=== PATIENT | male | born 1995 | race Caucasian/White ===

== ENCOUNTER 2020-06-23 06:01 | Emergency (ER) | payer OTHER, SELFPAY ==
[2020-06-23] VITALS (9 sets, daily range): BP systolic 122–161; BP diastolic 59–93; PULSE 84–125; RESP 16–26; TEMP 37.4; O2SAT 93–99; BMI 27.3
--- NOTE | 2020-06-23 06:05 | ED.GIBLEED ---
HPI - GI Bleed <Asher Powell DO - Last Filed: 06/24/20 00:04> General Chief complaint: GI Bleed Stated complaint: Vomitting blood, confusion x 1 hour Time Seen by Provider: 06/23/20 06:05 Source: patient Mode of arrival: Ambulatory Limitations: no limitations History of Present Illness HPI Narrative: 24M nonsmoker without significant medical history presents with the chief complaint of multiple episodes of painless vomiting this morning which were rather violent and evolved into blood streaks and small dark clots. He is dizzy and lightheaded. He has been drinking 6-8 beers daily for a few years. He denies any history of GI bleed such as this, nor has he had the passage of dark and tarry stools. He does not take any blood thinners. He denies frequent use of aspirin or motrin. He's never had an EGD. He states he went to bed in his normal state of health. MD complaint: blood streaked emesis Onset (ago): hour(s) Severity: moderate Relieving factors: none Exacerbating factors: none Context: alcohol abuse Associated symptoms: nausea and vomiting Treatments Prior to Arrival: none Related Data Previous Rx's Medication Instructions Recorded omeprazole 40 mg PO DAILY #14 cap 06/23/20 ondansetron 4 mg PO Q8H PRN #10 tab 06/23/20 ondansetron 4 mg PO TID-QID PRN #10 tab 06/23/20 pantoprazole [Protonix] 40 mg PO DAILY #30 tab 06/23/20 sucralfate [Carafate] 1 g PO BID #30 tab 06/23/20 Allergies Allergy/AdvReac Type Severity Reaction Status Date / Time No Known Drug Allergies Allergy Verified 06/23/20 06:14 Review of Systems <Asher Powell DO - Last Filed: 06/24/20 00:04> Constitutional Constitutional: Denies chills, Denies fatigue, Denies fever(s), Denies frequent falls, Reports lethargy, Reports poor appetite and Reports weakness Eyes Eyes: Denies change in vision, Denies eye discharge, Denies irritation and Denies loss of vision ENT Ears, Nose, Mouth, and Throat: Denies change in voice, Denies dizziness, Denies neck pain, Denies sore throat and Denies throat swelling Cardiovascular Cardiovascular: Denies chest pain, Denies irregular heart rhythm, Denies lightheadedness, Denies palpitations, Denies dyspnea, Denies dyspnea on exertion and Denies orthopnea Respiratory Respiratory: Denies cough, Denies dyspnea, Denies dyspnea on exertion and Denies wheezing Gastrointestinal Gastrointestinal: Denies abdominal pain, Denies change in bowel habits, Denies diarrhea, Reports nausea, Reports vomiting and Reports hematemesis Musculoskeletal Musculoskeletal: Denies neck pain and Denies numbness Integumentary/Breasts Skin/Breast: Denies pruritus, Denies erythema, Denies rash and Denies wounds Neurologic Neurologic: Denies behavioral changes, Denies confusion, Denies dizziness, Denies frequent falls, Denies loss of vision, Denies numbness and Reports weakness Psychiatric Psychiatric: Denies anxiety, Denies behavioral changes, Denies confusion, Denies depression, Denies homicidal ideation and Denies suicidal ideation Endocrine Endocrine: Denies fatigue, Denies flushing and Denies palpitations Hematologic/Lymphatic Hematologic/Lymphatic: Denies easy bruising Allergic/Immunologic Allergic/Immunologic: Denies urticaria, Denies throat swelling and Denies wheezing Patient History <Asher Powell DO - Last Filed: 06/24/20 00:04> Social History Smoking Status: Never smoker Smoking Status: Never smoker alcohol intake frequency: 3 or more drinks per day Alcohol type: beer Substance Use Type: does not use Exam <Asher Powell DO - Last Filed: 06/24/20 00:04> Narrative Exam Narrative: GENERAL: [24] year old patient appears stated age. Well-nourished, well-developed patient, in mild distress. HEAD: Atraumatic. Normocephalic. EYES: Pupils equal round and reactive. Extraocular motions intact. No scleral icterus. No injection or drainage. ENT: Nose without bleeding, purulent drainage. Throat without erythema, tonsillar hypertrophy or exudate. Airway patent. NECK: Trachea midline. Non tender CARDIOVASCULAR: Tachycardic but regular rhythm without murmurs, gallops, or rubs. RESPIRATORY: Clear to auscultation. Breath sounds equal bilaterally. No wheezes, rales, or rhonchi. GASTROINTESTINAL: Abdomen soft, non-tender, nondistended. EXTREMITIES: No edema or joint tenderness. BACK: Nontender without deformity or crepitance. No flank tenderness. NEURO: AOx3. SKIN: No rash or erythema of visible areas Initial Vital Signs Initial Vital Signs: Vital Signs Temperature 99.3 F 06/23/20 06:05 Pulse Rate 125 H 06/23/20 06:05 Respiratory Rate 18 06/23/20 06:05 Blood Pressure 161/93 H 06/23/20 06:05 Pulse Oximetry 94 06/23/20 06:05 <Sara Quick, DO - Last Filed: 06/23/20 10:16> Initial Vital Signs Initial Vital Signs: Vital Signs Temperature 99.3 F 06/23/20 06:05 Pulse Rate 125 H 06/23/20 06:05 Respiratory Rate 18 06/23/20 06:05 Blood Pressure 161/93 H 06/23/20 06:05 Pulse Oximetry 94 06/23/20 06:05 Course <Asher Powell, DO - Last Filed: 06/24/20 00:04> Orders Ordered: Discontinued Medications Sodium Chloride (Normal Saline 0.9%) 1,000 mls @ 150 mls/hr IV CONT ENAMNUEL Last Infusion: 06/23/20 07:35 Dose: 150 mls/hr Documented by: Infusion: 06/23/20 06:56 Dose: 999 mls/hr Documented by: Admin: 06/23/20 06:32 Dose: 150 mls/hr Documented by: HARLEY Ondansetron HCl (Ondansetron 4 Mg/2 Ml Inj) 4 mg IV NOW ONE Stop: 06/23/20 06:14 Last Admin: 06/23/20 06:35 Dose: 4 mg Documented by: HARLEY Pantoprazole Sodium (Pantoprazole 40 Mg Vial) 40 mg IV NOW ONE Stop: 06/23/20 06:14 Last Admin: 06/23/20 06:32 Dose: 40 mg Documented by: HARLEY Reevaluation(s) Reevaluation #1: patient still feeling dizzy and lightheaded, HR down to low 100s now. Will hold on IVF until receipt of first H/H Time: 06:32 Vital Signs Vital signs: Vital Signs - 8 hr 06/23/20 06:05 06/23/20 06:31 06/23/20 07:00 Temperature 99.3 F Pulse Rate 125 H 96 H 94 H Respiratory Rate 18 19 21 Blood Pressure 161/93 H 138/69 124/68 Pulse Oximetry 94 94 95 06/23/20 07:30 06/23/20 08:00 06/23/20 08:30 Temperature Pulse Rate 93 H 84 94 H Respiratory Rate 16 Blood Pressure 122/65 124/59 L Pulse Oximetry 94 93 97 06/23/20 08:32 06/23/20 09:00 06/23/20 09:11 Temperature Pulse Rate 92 H 91 H 88 Respiratory Rate 26 H Blood Pressure 130/68 128/74 Pulse Oximetry 95 96 99 <Sara Quick, DO - Last Filed: 06/23/20 10:16> Orders Ordered: Discontinued Medications Sodium Chloride (Normal Saline 0.9%) 1,000 mls @ 150 mls/hr IV CONT ENMANUEL Last Infusion: 06/23/20 07:35 Dose: 150 mls/hr Documented by: Infusion: 06/23/20 06:56 Dose: 999 mls/hr Documented by: Admin: 06/23/20 06:32 Dose: 150 mls/hr Documented by: HARLEY Ondansetron HCl (Ondansetron 4 Mg/2 Ml Inj) 4 mg IV NOW ONE Stop: 06/23/20 06:14 Last Admin: 06/23/20 06:35 Dose: 4 mg Documented by: HARLEY Pantoprazole Sodium (Pantoprazole 40 Mg Vial) 40 mg IV NOW ONE Stop: 06/23/20 06:14 Last Admin: 06/23/20 06:32 Dose: 40 mg Documented by: HARLEY Vital Signs Vital signs: Vital Signs - 8 hr 06/23/20 06:05 06/23/20 06:31 06/23/20 07:00 Temperature 99.3 F Pulse Rate 125 H 96 H 94 H Respiratory Rate 18 19 21 Blood Pressure 161/93 H 138/69 124/68 Pulse Oximetry 94 94 95 06/23/20 07:30 06/23/20 08:00 06/23/20 08:30 Temperature Pulse Rate 93 H 84 94 H Respiratory Rate 16 Blood Pressure 122/65 124/59 L Pulse Oximetry 94 93 97 06/23/20 08:32 06/23/20 09:00 11/30/20 09:11 Temperature Pulse Rate 92 H 91 H 88 Respiratory Rate 26 H Blood Pressure 130/68 128/74 Pulse Oximetry 95 96 99 MDM - GI Bleed <Asher Powell DO - Last Filed: 06/24/20 00:04> Lab Data Result diagrams: 06/23/20 08:32 06/23/20 06:30 Labs: Lab Results 06/23/20 06/23/20 06/23/20 Range/Units 06:30 06:30 06:30 WBC 7.7 (4.5-11.0) X10^3/uL RBC 4.87 (4.5-5.9) X10^6/uL Hgb 15.0 (13.5-17.5) g/dL Hct 44.8 (41-53) % MCV 91.8 (80-100) fL MCH 30.8 (26-34) PG MCHC 33.5 (30-36) % RDW 14.0 (11.6-14.8) % Plt Count 273 (150-400) X10^3/uL Neut % (Auto) 76.7 H (50-75) % Lymph % (Auto) 15.2 L (25-40) % [place] % (Auto) 7.2 (3-14) % Eos % (Auto) 0.4 L (2-4) % Baso % (Auto) 0.5 (0-2) % Neut # (Auto) 5900 (2277-6346) /uL Lymph # (Auto) 1200 (0726-7424) /uL [place] # (Auto) 600 (0-900) /uL Eos # (Auto) 0 (0-450) /uL Baso # (Auto) 0 (0-100) /uL PT 11.6 (10.1-12.7) SECONDS INR 1.0 (0.9-1.3) APTT 27 (26.4-36.2) SECONDS Sodium 135 L (137-145) mmol/L Potassium 3.9 (3.4-5.1) mmol/L Chloride 97 L (98-107) mmol/L Carbon Dioxide 21 L (22-32) mmol/L BUN 12 (9-20) mg/dL Creatinine 0.69 (0.66-1.25) mg/dL Estimated GFR > 60.0 (>60) mL/min BUN/Creatinine Ratio 17.4 (6-22) Glucose 83 (70-100) mg/dL Calcium 9.4 (8.4-10.2) mg/dL Total Bilirubin 0.7 (0.2-1.3) mg/dL AST 37 (17-59) IU/L ALT 45 (<50) IU/L Alkaline Phosphatase 87 (38-126) U/L Total Protein 8.8 H (6.3-8.2) g/dL Albumin 5.0 (3.5-5.0) g/dL Globulin 3.8 (1.7-4.1) g/dL Albumin/Globulin Ratio 1.3 (1.0-2.8) COVID-19 PCR (Negative) Blood Type Antibody Screen 06/23/20 06/23/20 06/23/20 Range/Units 06:30 06:30 08:32 WBC (4.5-11.0) X10^3/uL RBC (4.5-5.9) X10^6/uL Hgb 14.1 (13.5-17.5) g/dL Hct 42.1 (41-53) % MCV (80-100) fL MCH (26-34) PG MCHC (30-36) % RDW (11.6-14.8) % Plt Count (150-400) X10^3/uL Neut % (Auto) (50-75) % Lymph % (Auto) (25-40) % [place] % (Auto) (3-14) % Eos % (Auto) (2-4) % Baso % (Auto) (0-2) % Neut # (Auto) (4981-5414) /uL Lymph # (Auto) (3067-4408) /uL [place] # (Auto) (0-900) /uL Eos # (Auto) (0-450) /uL Baso # (Auto) (0-100) /uL PT (10.1-12.7) SECONDS INR (0.9-1.3) APTT (26.4-36.2) SECONDS Sodium (137-145) mmol/L Potassium (3.4-5.1) mmol/L Chloride (98-107) mmol/L Carbon Dioxide (22-32) mmol/L BUN (9-20) mg/dL Creatinine (0.66-1.25) mg/dL Estimated GFR (>60) mL/min BUN/Creatinine Ratio (6-22) Glucose (70-100) mg/dL Calcium (8.4-10.2) mg/dL Total Bilirubin (0.2-1.3) mg/dL AST (17-59) IU/L ALT (<50) IU/L Alkaline Phosphatase (38-126) U/L Total Protein (6.3-8.2) g/dL Albumin (3.5-5.0) g/dL Globulin (1.7-4.1) g/dL Albumin/Globulin Ratio (1.0-2.8) COVID-19 PCR Negative (Negative) Blood Type A Positive Antibody Screen Negative <Sara Quick DO - Last Filed: 06/23/20 10:16> Lab Data Labs: Lab Results 06/23/20 06/23/20 06/23/20 Range/Units 06:30 06:30 06:30 WBC 7.7 (4.5-11.0) X10^3/uL RBC 4.87 (4.5-5.9) X10^6/uL Hgb 15.0 (13.5-17.5) g/dL Hct 44.8 (41-53) % MCV 91.8 (80-100) fL MCH 30.8 (26-34) PG MCHC 33.5 (30-36) % RDW 14.0 (11.6-14.8) % Plt Count 273 (150-400) X10^3/uL Neut % (Auto) 76.7 H (50-75) % Lymph % (Auto) 15.2 L (25-40) % [place] % (Auto) 7.2 (3-14) % Eos % (Auto) 0.4 L (2-4) % Baso % (Auto) 0.5 (0-2) % Neut # (Auto) 5900 (0514-1381) /uL Lymph # (Auto) 1200 (2624-5146) /uL [place] # (Auto) 600 (0-900) /uL Eos # (Auto) 0 (0-450) /uL Baso # (Auto) 0 (0-100) /uL PT 11.6 (10.1-12.7) SECONDS INR 1.0 (0.9-1.3) APTT 27 (26.4-36.2) SECONDS Sodium 135 L (137-145) mmol/L Potassium 3.9 (3.4-5.1) mmol/L Chloride 97 L (98-107) mmol/L Carbon Dioxide 21 L (22-32) mmol/L BUN 12 (9-20) mg/dL Creatinine 0.69 (0.66-1.25) mg/dL Estimated GFR > 60.0 (>60) mL/min BUN/Creatinine Ratio 17.4 (6-22) Glucose 83 (70-100) mg/dL Calcium 9.4 (8.4-10.2) mg/dL Total Bilirubin 0.7 (0.2-1.3) mg/dL AST 37 (17-59) IU/L ALT 45 (<50) IU/L Alkaline Phosphatase 87 (38-126) U/L Total Protein 8.8 H (6.3-8.2) g/dL Albumin 5.0 (3.5-5.0) g/dL Globulin 3.8 (1.7-4.1) g/dL Albumin/Globulin Ratio 1.3 (1.0-2.8) COVID-19 PCR (Negative) Blood Type Antibody Screen 06/23/20 06/23/20 06/23/20 Range/Units 06:30 06:30 08:32 WBC (4.5-11.0) X10^3/uL RBC (4.5-5.9) X10^6/uL Hgb 14.1 (13.5-17.5) g/dL Hct 42.1 (41-53) % MCV (80-100) fL MCH (26-34) PG MCHC (30-36) % RDW (11.6-14.8) % Plt Count (150-400) X10^3/uL Neut % (Auto) (50-75) % Lymph % (Auto) (25-40) % [place] % (Auto) (3-14) % Eos % (Auto) (2-4) % Baso % (Auto) (0-2) % Neut # (Auto) (6865-2135) /uL Lymph # (Auto) (8161-7470) /uL [place] # (Auto) (0-900) /uL Eos # (Auto) (0-450) /uL Baso # (Auto) (0-100) /uL PT (10.1-12.7) SECONDS INR (0.9-1.3) APTT (26.4-36.2) SECONDS Sodium (137-145) mmol/L Potassium (3.4-5.1) mmol/L Chloride (98-107) mmol/L Carbon Dioxide (22-32) mmol/L BUN (9-20) mg/dL Creatinine (0.66-1.25) mg/dL Estimated GFR (>60) mL/min BUN/Creatinine Ratio (6-22) Glucose (70-100) mg/dL Calcium (8.4-10.2) mg/dL Total Bilirubin (0.2-1.3) mg/dL AST (17-59) IU/L ALT (<50) IU/L Alkaline Phosphatase (38-126) U/L Total Protein (6.3-8.2) g/dL Albumin (3.5-5.0) g/dL Globulin (1.7-4.1) g/dL Albumin/Globulin Ratio (1.0-2.8) COVID-19 PCR Negative (Negative) Blood Type A Positive Antibody Screen Negative MDM Narrative Medical decision making narrative: Patient signed out to me by Dr. Powell and seen evaluated patient myself. No longer tachycardic after IV fluids no further vomiting in the ED for 3 hours. Repeat H&H is minimally decreased. At this time I recommend going home. More likely a Georgette-Pradhan tear. Does not seem to be a varicose bleed Discharge Plan Departure Patient Disposition: Home Clinical Impression: Georgette-Pradhan syndrome, Upper gastrointestinal hemorrhage Vomiting Qualifiers: Vomiting type: unspecified Vomiting Intractability: non-intractable Nausea presence: with nausea Qualified Code(s): R11.2 - Nausea with vomiting, unspecified Instructions: DI for Vomiting -- Adult, Gastrointestinal Bleeding Activity Restrictions/Additional Instructions: *You have been diagnosed with Georgette-Pradhan tear *What to do: Avoid vomiting forcefully if possible. Increase fluid intake throughout the day *Continue to take medications as directed Zofran 4 mg every 8 hours if needed for nausea or vomiting Protonix 40 mg once daily 30 minutes before your 1st meal *Follow up with your primary care provider in 2-3 days *Return to ER if you should have of vomiting blood persistently, dizziness lightheadedness passing out or any new, worsening or concerning symptoms Prescriptions: New ondansetron 4 mg tablet,disintegrating 4 mg PO TID-QID PRN (Reason: nausea and vomiting) Qty: 10 RF: 0 pantoprazole [Protonix] 40 mg tablet,delayed release (DR/EC) 40 mg PO DAILY Qty: 30 RF: 0 sucralfate [Carafate] 1 gram tablet 1 g PO BID Qty: 30 RF: 0 ondansetron 4 mg tablet,disintegrating 4 mg PO Q8H PRN (Reason: nausea and vomiting) Qty: 10 RF: 0 omeprazole 40 mg capsule,delayed release(DR/EC) 40 mg PO DAILY Qty: 14 RF: 0 Referrals: Megan Montague MD [Physician] -
[2020-06-23] MEDS: PANTOPRAZOLE 40 MG VIAL IV (06:32)
[2020-06-23] MEDS: SODIUM CHLORIDE 0.9% 1,000 ML 150 ML IV (06:32)
[2020-06-23] MEDS: ONDANSETRON 4 MG/2 ML INJ IV (06:35)
[2020-06-23 06:38] LABS: Add Manual Diff / Slide Review NO; Basophils Absolute Auto 0 /uL (0-100); Basophils Percent Auto 0.5 % (0-2); Eosinophils Absolute Auto 0 /uL (0-450); Eosinophils Percent Auto 0.4 % (2-4); Hematocrit 44.8 % (41-53); Lymphocytes Absolute Auto 1200 /uL (1100-4500); Lymphocytes Percent Auto 15.2 % (25-40); Mean Corpuscular HGB Conc 33.5 % (30-36); Mean Corpuscular Hemoglobin 30.8 PG (26-34); Mean Corpuscular Volume 91.8 fL (80-100); Monocytes Absolute Auto 600 /uL (0-900); Monocytes Percent Auto 7.2 % (3-14); Neutrophils Absolute Auto 5900 /uL (1500-7000); Neutrophils Percent Auto 76.7 % (50-75); Platelet Count 273 X10^3/uL (150-400); Red Blood Cell Count 4.87 X10^6/uL (4.5-5.9); White Blood Cell Count 7.7 X10^3/uL (4.5-11.0)
[2020-06-23 06:44] LABS: Prothrombin Time 11.6 SECONDS (10.1-12.7)
[2020-06-23 06:47] LABS: PTT Partial Thromboplastin Tim 27 SECONDS (26.4-36.2)
[2020-06-23 06:48] LABS: Alanine Aminotransferase 45 IU/L (<50); Albumin Globulin Ratio 1.3 (1.0-2.8); Alkaline Phosphatase 87 U/L (38-126); Aspartate Aminotransferase 37 IU/L (17-59); BUN Creatinine Ratio 17.4 (6-22); Bilirubin Total 0.7 mg/dL (0.2-1.3); Blood Urea Nitrogen 12 mg/dL (9-20); Calcium 9.4 mg/dL (8.4-10.2); Carbon Dioxide 21 mmol/L (22-32); Chloride 97 mmol/L (98-107); Estimated Glomerular Filt Rate > 60.0 mL/min (>60); Globulin 3.8 g/dL (1.7-4.1); Glucose 83 mg/dL (70-100); HEMOLYSIS < 15 (0-50); Potassium 3.9 mmol/L (3.4-5.1); Sodium 135 mmol/L (137-145); Total Protein 8.8 g/dL (6.3-8.2)
[2020-06-23 06:51] LABS: COVID19 -Nasal RAPID Negative (Negative)
[2020-06-23 08:38] LABS: Hematocrit 42.1 % (41-53); Hemoglobin 14.1 g/dL (13.5-17.5)
== END 2020-06-23 09:19 | disposition home or self-care (01) ==
PROVIDERS: Emergency Medicine; Emergency Provider Emergency Medicine
DX: K22.6 Gastro-esophageal laceration-hemorrhage syndrome (principal); R11.2 Nausea with vomiting, unspecified
CPT/HCPCS: 36415; 80053; 85014; 85018; 85025; 85610; 85730; 86850; 86900; 86901; 87635; 93005; 93010; 96361; 96374; 96375; 99283; 99284; C9113; J2405

== ENCOUNTER → 2021-06-09 08:25 | Outpatient (CLI) | payer SELFPAY ==
--- NOTE | 2021-06-09 08:29 | DI.RAD.S_ITS ---
PROCEDURE: XR THORACIC SPINE 2V INDICATIONS: CERVICEL SPINE PAIN TECHNIQUE: 2 views of the thoracic spine were acquired. COMPARISON: None. FINDINGS: Bones: No acute fracture. Levocurvature noted no definite disc space narrowing. Soft tissues: No paravertebral stripe thickening. IMPRESSION: Thoracic levocurvature. Dictated by: Kwadwo Hutchison M.D. on 06/09/2021 at 9:58 Approved by: Kwadwo Hutchison M.D. on 06/09/2021 at 9:59
--- NOTE | 2021-06-09 08:29 | DI.RAD.S_ITS ---
PROCEDURE: XR CERVICAL SPINE 2V OR 3V INDICATIONS: CERVICAL SPINE PAIN TECHNIQUE: 2 view(s) of the cervical spine were acquired. COMPARISON: None. FINDINGS: Bones: Straightening of the normal lordotic curvature. No acute fracture. Multilevel degenerative endplate sclerosis and spurring. Diffuse facet arthropathy. No definite disc space narrowing. Soft tissues: No prevertebral soft tissue swelling. IMPRESSION: Straightening of the normal lordotic curvature and minimal lower cervical facet disease. If the patient's pain or other symptoms persist, consider further evaluation with MRI Dictated by: Kwadwo Hutchison M.D. on 06/09/2021 at 9:59 Approved by: Kwadwo Hutchison M.D. on 06/09/2021 at 10:00
--- NOTE | 2021-06-09 08:29 | DI.RAD.S_ITS ---
PROCEDURE: XR LUMBAR SPINE 2-3V INDICATIONS: SPINE PAIN TECHNIQUE: 2 views of the lumbar spine were acquired. COMPARISON: None. FINDINGS: Bones: No acute fracture. Multilevel degenerative endplate sclerosis and spurring. Diffuse facet arthropathy. Minimal lower thoracic disc space narrowing. There is minimal narrowing of the L1-L2 and L2-L3 disc spaces. Straightening of the normal lordotic curvature. Soft tissues: Overlying bowel gas pattern is normal. No suspicious soft tissue calcifications. IMPRESSION: Minimal lower thoracic and upper lumbar spondylosis Dictated by: Kwadwo Hutchison M.D. on 06/09/2021 at 10:26 Approved by: Kwadwo Hutchison M.D. on 06/09/2021 at 10:27
== END ==
PROVIDERS: Referring Provider Chiropractor; Visit Provider Chiropractor
DX: M99.01 Segmental and somatic dysfunction of cervical region (principal); M99.02 Segmental and somatic dysfunction of thoracic region; M99.03 Segmental and somatic dysfunction of lumbar region; M99.04 Segmental and somatic dysfunction of sacral region; M99.05 Segmental and somatic dysfunction of pelvic region; M54.2 Cervicalgia; M54.6 Pain in thoracic spine; M54.50 Low back pain, unspecified
CPT/HCPCS: 72040; 72070; 72100